=== PATIENT | female | born 1935 | race Caucasian/White ===

== ENCOUNTER 2017-10-18 12:45 | Inpatient (IN) | payer MEDICARE, MEDICAID ==
[~2017-10-18] VITALS: Ht 144.8 cm; Wt 54.0 kg
--- NOTE | ~2017-10-18 | PROC ---
[address] [address] PROCEDURE REPORT Name: MINA TOMLINSON Room: [address] IN .R.#: [id number] Admission: 10/18/17 Attend Phys: Ulisses Oh MD Discharge: 10/20/17 Date of : 35 Report #: [id number] THIS REPORT FOR: //name// For GI report, please see the Provation report in Perceptive 7 content. By: 0646Medical Records Staff KAYLEE /JOHNNIE
[~2017-10-18 12:45] MED LIST: ANASTROZOLE1 MG PO; CALCIUM 500 +1 EAC5 PO; PROTONIX40 M1 PO; VITAMIN D1000 UNI1 PO; VITAMIN D2000 UNIT PO
[2017-10-18 12:58] VITALS: BP 123/84
[2017-10-18] MEDS ORDERED: CELEXA20 MG PO (13:02)
[2017-10-18 13:43] LABS: ABSOLUTE LYMPHOCYTES 1.3 thou/uL (0.8-5.3); ABSOLUTE MONOCYTES 0.4 thou/uL (0.0-1.2); ABSOLUTE NEUTROPHILS 6.3 thou/uL (1.6-8.1); BASOPHILS 0.4 %; EOSINOPHILS 0.1 %; HEMATOCRIT 39.7 % (37.0-47.0); HEMOGLOBIN 13.4 gm/dL (12.0-15.0); MCH 31.5 pg (26.0-34.0); MCHC 33.8 g/dL (28.0-37.0); MCV 93.1 fL (80.0-100.0); MONOCYTES 4.6 %; MPV 8.9 fl. (7.2-11.1); NUCLEATED RBCS 0 /100WBC; PLATELET COUNT* 210 thou/uL (150-400); POLYS 78.9 %; RBC 4.26 mil/uL (4.20-5.00); RDW-CV 13.7 % (10.5-14.5); WBC 7.9 thou/uL (4.0-11.0)
[2017-10-18 13:51] LABS: ANION GAP 9 mmol/L (7-16); BUN 14 mg/dL (7-18); CALCIUM 8.7 mg/dL (8.5-10.1); CHLORIDE 106 mmol/L (98-107); CO2 26 mmol/L (21-32); CREATININE 0.5 mg/dL (0.6-1.3); GLUCOSE 137 mg/dL (70-99); POTASSIUM 3.9 mmol/L (3.5-5.1); SODIUM 141 mmol/L (136-145)
[2017-10-18 13:59] LABS: ALBUMIN 3.7 g/dL (3.4-5.0); ALKALINE PHOSPHATASE 86 U/L (46-116); LIPASE 118 U/L (73-393); SGOT 18 U/L (15-37); SGPT 17 U/L (30-65); TOTAL BILIRUBIN 0.6 mg/dL (<0.1-1.0); TOTAL PROTEIN 7.4 g/dL (6.4-8.2); TROPONIN-I LEVEL <0.06 ng/mL (<0.06)
[2017-10-18] MEDS ORDERED: ZOFRAN ODT4 MG PO (14:43)
[2017-10-18 14:54] LABS: URINE BILIRUBIN NEGATIVE (Negative); URINE BLOOD NEGATIVE (Negative); URINE CLARITY CLOUDY; URINE COLOR YELLOW; URINE GLUCOSE-RANDOM NEGATIVE (Negative); URINE KETONES NEGATIVE (Negative); URINE LEUKOCYTES-REFLEX TRACE (Negative); URINE PROTEIN NEGATIVE (Negative); URINE SPECIFIC GRAVITY 1.015 (1.005-1.030); URINE UROBILINOGEN 0.2 E.U./dl (0.2-1.0)
[2017-10-18 15:09] LABS: INFLUENZA A ANTIGEN None Detected (None Detect); INFLUENZA B ANTIGEN None Detected (None Detect)
[2017-10-18 15:11] LABS: URINE NITRITE-REFLEX POSITIVE (Negative)
[2017-10-18 15:12] LABS: MUCUS 0-3 Light strn/LPF (None Seen); SQUAMOUS >10 Many /LPF (0-3)
[2017-10-18 15:13] LABS: BACTERIA-REFLEX >30 Many /HPF (None Seen); URINE WBC-REFLEX 6-15 Few /HPF (0-5)
[2017-10-18 15:14] LABS: CRYSTALS None Seen /LPF (None Seen); HYALINE CASTS 0-3 Few /LPF (None Seen); URINE RBC None Seen /HPF (0-2)
--- NOTE | 2017-10-18 16:05 | EKG ---
[place] [address] ELECTROCARDIOGRAM REPORT Name: TOMLINSONMINA D Room: [place] [address] ADM IN .R.#: [id number] Admission: 10/18/17 Attend Phys: Ulisses Oh MD Discharge: Date of : 35 Report #: [id number] THIS REPORT FOR: //name// [facility] ED Test Date: 2017-10-18 Test Time: 13:30:28 Pat Name: MINA TOMLINSON Department: Room: [facility] Gender: Biology Intern: Wisam TROTTER : 1935 Requested By: Lazara Alvarez Order Number: [id number] MD: Andriy Armstrong Measurements Intervals [place] Rate: 87 P: 30 LA: 163 QRS: -34 QRSD: 80 T: 11 QT: 388 QTc: 467 Interpretive Statements Sinus rhythm Inferior infarct, old possible No previous ECG available for comparison Electronically Signed On 10-18-2017 16:04:57 MANAGER OF NETWORK by Andriy Armstrong [email or web address] <ELECTRONICALLY SIGNED> By: Andriy Armstrong MD, [facility] 10/18/17 1604 1330 29 Andriy Armstrong MD, FAC /EPI
[2017-10-18 18:29] VITALS: BP 130/75
[2017-10-18 19:26] VITALS: BP 112/69
[2017-10-18 19:45] VITALS: BP 153/91
[2017-10-19 04:47] LABS: ABSOLUTE LYMPHOCYTES 2.5 thou/uL (0.8-5.3); ABSOLUTE MONOCYTES 0.7 thou/uL (0.0-1.2); ABSOLUTE NEUTROPHILS 4.7 thou/uL (1.6-8.1); BASOPHILS 0.5 %; EOSINOPHILS 0.6 %; HEMATOCRIT 36.3 % (37.0-47.0); HEMOGLOBIN 12.7 gm/dL (12.0-15.0); LYMPHOCYTES 31.2 %; MCH 32.1 pg (26.0-34.0); MCV 91.9 fL (80.0-100.0); MONOCYTES 8.6 %; MPV 9.4 fl. (7.2-11.1); NUCLEATED RBCS 0 /100WBC; PLATELET COUNT* 192 thou/uL (150-400); POLYS 59.1 %; RBC 3.95 mil/uL (4.20-5.00); RDW-CV 13.8 % (10.5-14.5)
[2017-10-19 04:53] LABS: CREATININE 0.6 mg/dL (0.6-1.3); MAGNESIUM 1.9 mg/dL (1.8-2.4); POTASSIUM 3.8 mmol/L (3.5-5.1)
[2017-10-19 07:55] VITALS: BP 125/67
[2017-10-19 09:00] VITALS: BP 125/67
[2017-10-20 07:17] VITALS: BP 114/69
[2017-10-20 07:40] VITALS: BP 114/69
[2017-10-20] MEDS ORDERED: CEFUROXIME500 MG PO (11:25)
[2017-10-20] MEDS ORDERED: PROTONIX40 M1 PO (11:26)
[2017-10-20] MEDS ORDERED: CARAFATE 1 GM TA1 G1 PO (11:28)
[2017-10-20 11:31] VITALS: BP 114/69
--- NOTE | 2017-10-22 09:34 | S ---
[place] [address] SURGICAL PATH RPT PROCEDURE Name: RUBI PRIETO Room: [address] IN [facility].#: [id number] Admission: 10/18/17 Date of : 35 Discharge: 10/20/17 Report #: [id number] Path Case #: [id number] PATHOLOGY REPORT COLLECTION DATE: 10/19/2017 RECEIVED DATE: 10/20/2017 SUBMITTING PHYS: Dr. Benita Gomes OTHER PHYS: Dr. Ulisses Oh SPECIMEN(S) RECEIVED: A.Distal esophagus * * * * * * * * * * * * FINAL DIAGNOSIS: Distal esophagus: - Benign gastric/columnar mucosa with moderate non-specific chronic and active inflammation and hyperplastic features, negative for Helicobacter pylori organisms, granulomas, goblet cells/diagnostic Holland's metaplasia, and dysplasia. (ZACHARIAH:mgr; 10/21/2017) COMMENT: Special Stain: Helicobacter pylori (A) PATHOLOGIST: Woody Hart M.D. REPORT ELECTRONICALLY SIGNED BY: Woody Hart M.D. DATE/TIME: 10/22/2017 09:34 * * * * * * * * * * * * GROSS PATHOLOGY: Received in formalin labeled "Rubi Prieto, distal esophagus esophagitis," is a segment of gramajo soft tissue measuring 0.5 cm in maximum dimension. The specimen is submitted entirely in cassette A1. (CAA; 10/20/2017) CLINICAL HISTORY: None provided INITIAL CPT CODE(S): A; 70103, 18106 Professional services performed by [facility] at [facility], [address] [place] [id number]. Technical services performed by [facility] at [address] [place] [address], [facility] [address] [address]. [place] [address] SURGICAL PATH RPT PROCEDURE Name: RUBI PRIETO Room: [facility] IN ..#: [id number] Admission: 10/18/17 Date of : 35 Discharge: 10/20/17 Report #: [id number] Path Case #: [id number] [facility] [address] [address] PHONE: [phone] DIRECTOR: Buzz Conte M.D. * * * END OF REPORT * * *
--- NOTE | 2017-11-11 14:50 | CON ---
[facility] [address] [place] [address] CONSULTATION Name: MINA TOMLINSON Room: [address] IN M.R.#: [id number] Admission: 10/18/17 Attend Phys: Ulisses Oh MD Discharge: 10/20/17 Date of : 35 Report #: [id number] THIS REPORT FOR: //name// CC: Ulisses Oh [facility] physician/PCP DICTATED BY: Melissa Kaye [facility] DATE OF SERVICE: 10/19/2017 Son does not remember who her PCP is. Please note at the time of this dictation, the patient was seen and physically examined by myself. REASON FOR CONSULTATION: Hematemesis. HISTORY OF PRESENT ILLNESS: This is a pleasant 82-year-old female who was brought to the Emergency Room by her son after having episodes of some nausea and vomiting, in which it was noted that she had some bright red blood in the stool after an episode along with some epigastric discomfort, which she had been having for the past 24 hours. Son states that because her stomach was upset that she did force herself to vomit with sticking her finger down her throat. The patient has been out of her medications, which has been her pantoprazole for several weeks per the son when all of these episodes started. He does not recall whether or not she has had EGD or colonoscopies done, all of this has all been done at [facility] several years ago. ALLERGIES: No known drug allergies. MEDICATIONS: From home include Celexa and anastrozole. PAST MEDICAL HISTORY: Breast cancer. PAST SURGICAL HISTORY: Right mastectomy. FAMILY HISTORY: Noncontributory. SOCIAL HISTORY: Denies any alcohol, tobacco or illegal drug use and she is currently living with her son. The patient does speak very little Lithuanian and he is her travel pta during this exam. REVIEW OF SYSTEMS: Twelve-point review of systems is essentially negative except what is mentioned in the HPI. PHYSICAL EXAMINATION: [place] [address] CONSULTATION Name: MINA TOMLINSON Room: [address]#: [id number] Admission: 10/18/17 Attend Phys: Ulisses Oh MD Discharge: 10/20/17 Date of : 35 Report #: [id number] VITAL SIGNS: Temperature 36.5, pulse 84, respirations 16, blood pressure 125/67. HEART: Regular rate and rhythm. LUNGS: Essentially clear. ABDOMEN: Soft with some diffuse tenderness in the upper quadrants, otherwise essentially negative. LABORATORY DATA: Hemoglobin on admission was 13.4, she is 12.7 now; hematocrit 36.3; white count is 8; platelets 192. Sodium 140, potassium 3.6, chloride 108, CO2 26, BUN is 13, creatinine 0.6, GFR is 96 and glucose is 96. She had positive nitrites in her urine and her LFTs were completely normal. CT showed a moderate amount of stool and some mild atelectasis and small hiatal hernia. IMPRESSION: 1. Hematemesis. 2. Epigastric pain. 3. History of breast cancer in 2016. 4. Urinary tract infection. PLAN: 1. EGD today with Dr. Gomes. 2. Further recommendations to be made after the procedure has been performed. Thank you for allowing us to participate in this patient's care. Please do not hesitate to call with any questions in regard to this consult. I have personally seen and examined the patient and reviewed labs and imaging studies. The patient with recent history of hematemesis and epigastric pain and burning. We will proceed with EGD and make further recommendation once the EGD is completed. The patient is agreeable with plan. <ELECTRONICALLY SIGNED> By: Benita Gomes MD 11/11/17 1450 1136 1934Benita Gomes MD /nt
--- NOTE | 2017-11-11 14:50 | CON ---
[address] [address] CONSULTATION Name: MINA TOMLINSON Room: [address] IN M.R.#: [id number] Admission: 10/18/17 Attend Phys: Ulisses Oh MD Discharge: 10/20/17 Date of : 35 Report #: [id number] THIS REPORT FOR: //name// CC: Ulisses Oh [facility] physician/PCP DATE OF SERVICE: 10/19/2017 ADDENDUM I have personally seen and examined the patient and reviewed labs and imaging studies. The patient with recent history of hematemesis and epigastric pain and burning. We will proceed with EGD and make further recommendation once the EGD is completed. The patient is agreeable with plan. <ELECTRONICALLY SIGNED> By: Benita Gomes MD 11/11/17 1450 1546 0246Benita Gomes MD /nt
== END 2017-10-20 14:09 | disposition home or self-care (01) | DRG 380 ==
LOC: M.ERS 12:45 → M.3W 15:53 → M.TBA-ER 15:53 → M.3W 18:33
PROVIDERS: Physician Assistant; ADMIT Internal Medicine
PROC: 0DB38ZX Excision of Lower Esophagus, Via Natural or Artificial Opening Endoscopic, Diagnostic (ICD-10-PCS; principal; 2017-10-18)
DX: K22.11 Ulcer of esophagus with bleeding (principal); G93.40 Encephalopathy, unspecified; N39.0 Urinary tract infection, site not specified; E86.0 Dehydration; R11.2 Nausea with vomiting, unspecified; K21.0 Gastro-esophageal reflux disease with esophagitis; K44.9 Diaphragmatic hernia without obstruction or gangrene; B96.20 Unspecified Escherichia coli [E. coli] as the cause of diseases classified elsewhere; Z85.3 Personal history of malignant neoplasm of breast; Z79.899 Other long term (current) drug therapy; Z90.11 Acquired absence of right breast and nipple; Z23 Encounter for immunization

== ENCOUNTER 2017-12-12 04:42 | Inpatient (IN) | payer MEDICARE, MEDICAID ==
[~2017-12-12] VITALS: Ht 149.9 cm; Wt 57.2 kg
--- NOTE | ~2017-12-12 | PROC ---
[facility] [address] [place] [address] PROCEDURE REPORT Name: MINA TOMLINSON Room: [address] IN M.R.#: [id number] Admission: 12/12/17 Attend Phys: Eber Garrido, Discharge: 12/14/17 Date of : 35 Report #: [id number] THIS REPORT FOR: //name// For GI report, please see the Provation report in Perceptive 7 content. By: 0652Medical Records Staff KAYLEE /JOHNNIE
[~2017-12-12 04:42] MED LIST changes: +CARAFATE 1 GM TA1 G1 PO; +CEFUROXIME500 MG PO; +CELEXA20 MG PO; +ZOFRAN ODT4 MG PO
[2017-12-12 04:53] VITALS: BP 151/85
[2017-12-12 05:17] LABS: ABSOLUTE BASOPHILS 0.1 thou/uL (0.0-0.2); ABSOLUTE EOSINOPHILS 0.1 thou/uL (0.0-0.7); ABSOLUTE LYMPHOCYTES 2.5 thou/uL (0.8-5.3); ABSOLUTE MONOCYTES 0.7 thou/uL (0.0-1.2); ABSOLUTE NEUTROPHILS 4.4 thou/uL (1.6-8.1); BASOPHILS 0.7 %; EOSINOPHILS 1.9 %; HEMATOCRIT 41.4 % (37.0-47.0); HEMOGLOBIN 13.8 gm/dL (12.0-15.0); LYMPHOCYTES 31.9 %; MCH 31.2 pg (26.0-34.0); MCHC 33.3 g/dL (28.0-37.0); MCV 93.8 fL (80.0-100.0); MONOCYTES 8.7 %; MPV 8.7 fl. (7.2-11.1); NUCLEATED RBCS 0 /100WBC; PLATELET COUNT* 186 thou/uL (150-400); POLYS 56.8 %; RBC 4.41 mil/uL (4.20-5.00); RDW-CV 13.9 % (10.5-14.5); WBC 7.8 thou/uL (4.0-11.0)
[2017-12-12 05:28] LABS: PROTIME 10.2 Seconds (9.20-11.50)
[2017-12-12 05:29] LABS: ANION GAP 9 mmol/L (7-16); BUN 20 mg/dL (7-18); CALCIUM 10.2 mg/dL (8.5-10.1); CHLORIDE 104 mmol/L (98-107); CO2 27 mmol/L (21-32); CREATININE 0.7 mg/dL (0.6-1.3); GLUCOSE 127 mg/dL (70-99); POTASSIUM 3.6 mmol/L (3.5-5.1); SODIUM 140 mmol/L (136-145)
[2017-12-12 05:40] LABS: ALBUMIN 3.9 g/dL (3.4-5.0); ALKALINE PHOSPHATASE 82 U/L (46-116); LIPASE 159 U/L (73-393); NT-PRO BRAIN NAT PEPTIDE 121 pg/mL (<300); SGOT 20 U/L (15-37); SGPT 19 U/L (30-65); TOTAL BILIRUBIN 0.7 mg/dL (<0.1-1.0); TOTAL PROTEIN 7.7 g/dL (6.4-8.2); TROPONIN-I LEVEL <0.06 ng/mL (<0.06)
[2017-12-12 06:21] LABS: URINE BILIRUBIN NEGATIVE (Negative); URINE BLOOD NEGATIVE (Negative); URINE CLARITY CLEAR; URINE COLOR YELLOW; URINE GLUCOSE-RANDOM NEGATIVE (Negative); URINE KETONES NEGATIVE (Negative); URINE LEUKOCYTES-REFLEX TRACE (Negative); URINE NITRITE-REFLEX NEGATIVE (Negative); URINE PROTEIN NEGATIVE (Negative); URINE SPECIFIC GRAVITY 1.015 (1.005-1.030); URINE UROBILINOGEN 0.2 E.U./dl (0.2-1.0)
[2017-12-12 06:32] LABS: BACTERIA-REFLEX >30 Many /HPF (None Seen); CASTS None Seen /LPF (None Seen); CRYSTALS None Seen /LPF (None Seen); SQUAMOUS 0-3 Few /LPF (0-3); URINE RBC None Seen /HPF (0-2); URINE WBC-REFLEX 0-5 Rare /HPF (0-5)
[2017-12-12 09:37] VITALS: BP 109/68
--- NOTE | 2017-12-12 13:01 | EKG ---
[place] [address] ELECTROCARDIOGRAM REPORT Name: MINA TOMLINSON Room: [address] IN .R.#: [id number] Admission: 12/12/17 Attend Phys: Eber Garrido, Discharge: Date of : 35 Report #: [id number] THIS REPORT FOR: //name// [facility] ED Test Date: 2017-12-12 Test Time: 04:59:38 Pat Name: MINA TOMLINSON Department: Room: [facility] Gender: F Attorney: DOV Joel : 1935 Requested By: Yumiko Bob Order Number: [id number] MD: Carlton Rowley Measurements Intervals [place] Rate: 93 P: 56 CO: 174 QRS: -25 QRSD: 81 T: -4 QT: 369 QTc: 459 Interpretive Statements Sinus rhythm Probable left atrial enlargement Borderline left axis deviation Borderline T wave abnormalities Baseline wander in lead(s) V2 Compared to ECG 10/18/2017 13:30:28 T-wave abnormality now present Myocardial infarct finding no longer present Electronically Signed On 12-12-2017 13:01:15 CDT by Carlton Rowley [email or web address] <ELECTRONICALLY SIGNED> By: Carlton Rowley MD, FACC 12/12/17 1301 0459 0459 Carlton Rowley MD, [facility] /EPI
[2017-12-12 15:25] VITALS: BP 98/55
[2017-12-12 21:00] VITALS: BP 92/54
[2017-12-13 04:14] LABS: HEMATOCRIT 35.9 % (37.0-47.0); MCH 31.4 pg (26.0-34.0); MCHC 33.4 g/dL (28.0-37.0); MCV 94.1 fL (80.0-100.0); MPV 9.1 fl. (7.2-11.1); RBC 3.81 mil/uL (4.20-5.00); WBC 5.9 thou/uL (4.0-11.0)
[2017-12-13 04:28] LABS: CALCIUM 8.3 mg/dL (8.5-10.1); CREATININE 0.9 mg/dL (0.6-1.3); POTASSIUM 4.3 mmol/L (3.5-5.1)
[2017-12-13 08:00] VITALS: BP 107/59
[2017-12-13 16:00] VITALS: BP 105/57
[2017-12-14 00:08] VITALS: BP 102/56
[2017-12-14 05:26] LABS: ABSOLUTE BASOPHILS 0.1 thou/uL (0.0-0.2); ABSOLUTE EOSINOPHILS 0.2 thou/uL (0.0-0.7); ABSOLUTE LYMPHOCYTES 2.7 thou/uL (0.8-5.3); ABSOLUTE MONOCYTES 0.6 thou/uL (0.0-1.2); ABSOLUTE NEUTROPHILS 2.8 thou/uL (1.6-8.1); BASOPHILS 0.9 %; EOSINOPHILS 3.6 %; HEMATOCRIT 37.9 % (37.0-47.0); HEMOGLOBIN 12.8 gm/dL (12.0-15.0); LYMPHOCYTES 42.2 %; MCH 31.6 pg (26.0-34.0); MCHC 33.7 g/dL (28.0-37.0); MCV 93.6 fL (80.0-100.0); MONOCYTES 9.5 %; MPV 9.1 fl. (7.2-11.1); NUCLEATED RBCS 0 /100WBC; PLATELET COUNT* 175 thou/uL (150-400); POLYS 43.8 %; RBC 4.05 mil/uL (4.20-5.00); WBC 6.5 thou/uL (4.0-11.0)
[2017-12-14 07:45] VITALS: BP 105/57
[2017-12-14 08:30] VITALS: BP 105/57
[2017-12-14 11:27] VITALS: BP 105/57
[2017-12-14] MEDS ORDERED: PRILOSEC 20 MG20 MG PO (15:46)
[2017-12-14 15:47] VITALS: BP 105/57
[2017-12-14] MEDS ORDERED: LEVAQUIN 500 M500 M3 PO (15:57)
[2017-12-14] MEDS ORDERED: PROTONIX40 M1 PO (15:57)
[2017-12-14] MEDS ORDERED: LEVAQUIN 500 M500 M2 PO (17:02)
[2017-12-14 20:05] VITALS: BP 105/57
--- NOTE | 2017-12-15 11:16 | S ---
[address] [address] SURGICAL PATH RPT PROCEDURE Name: RUBI PRIETO Room: [address] IN [facility].#: [id number] Admission: 12/12/17 Date of : 35 Discharge: 12/14/17 Report #: [id number] Path Case #: [id number] PATHOLOGY REPORT COLLECTION DATE: 12/14/2017 RECEIVED DATE: 12/14/2017 SUBMITTING PHYS: Dr. Benita Gomes OTHER PHYS: Dr. Eber Garrido SPECIMEN(S) RECEIVED: A.Distal esophageal ulcer biopsy * * * * * * * * * * * * FINAL DIAGNOSIS: Distal esophageal ulcer biopsy: - Severe chronic and active esophagitis with ulceration compatible with ulcerative reflux, negative for granulomas, viral inclusions and dysplasia. (ZACHARIAH:pit; 12/15/2017) PATHOLOGIST: Woody Hart M.D. REPORT ELECTRONICALLY SIGNED BY: Woody Hart M.D. DATE/TIME: 12/15/2017 11:16 * * * * * * * * * * * * GROSS PATHOLOGY: Received in formalin labeled "Rubi Pireto, distal esophageal ulcer biopsy," are 2 segments of gramajo soft tissue measuring 0.5 x 0.2 x 0.2 cm in aggregate dimensions and ranging from 0.2 to 0.3 cm in maximum dimension. The specimen is submitted entirely in cassette A1. (TSD; 12/14/2017) CLINICAL HISTORY: None provided INITIAL CPT CODE(S): A; 71308 Professional services performed by [facility] at [facility] [address] [place] [address] Technical services performed by [facility] at [address] [place] [address], [facility] [address] [address]. [address] [place] [address] SURGICAL PATH RPT PROCEDURE Name: RUBI PRIETO Room: [address]#: [id number] Admission: 12/12/17 Date of : 35 Discharge: 12/14/17 Report #: [id number] Path Case #: [id number] [facility] [address] [address] PHONE: [phone] DIRECTOR: Buzz Conte M.D. * * * END OF REPORT * * *
--- NOTE | 2017-12-27 15:01 | CON ---
[facility] [address] [place] [address] CONSULTATION Name: MINA TOMLINSON Room: [address] IN M.R.#: [id number] Admission: 12/12/17 Attend Phys: Eber Garrido, Discharge: 12/14/17 Date of : 35 Report #: [id number] THIS REPORT FOR: //name// CC: [facility] physician/PCP Eber Garrido DICTATED BY: Melissa AGUILAP DATE OF SERVICE: 12/13/2017 The patient does not have a PCP. Please note at the time of this dictation, the patient was seen and physically examined by myself. HISTORY OF PRESENT ILLNESS: This is an 82-year-old female who is Venezuelan speaking and does not understand any Panamanian. At the time of this dictation, the translation phone was not working and her son was unavailable to help with translation. This was obtained to the best of my ability with the lack of being able to speak Venezuelan to her. Most of this has been obtained from the chart. The patient was complaining for several days prior to admission kind of a burning sensation in her abdomen, which was in the epigastric area radiating into her throat with some nausea, no vomiting was noted and she was having no issues with her stools. Her appetite had been good. Back in 10/2017, the patient was having hematemesis and underwent an EGD that showed grade D esophagitis as well as an esophageal ulcer. She was placed on Protonix b.i.d. and Carafate b.i.d., unclear if she has been taking those medications as directed for the past 2 months and was recommended a repeat EGD in 2 months and to do a colon as well since she has not had a colon in many years. ALLERGIES: No known drug allergies. MEDICATIONS: From home include pantoprazole, Carafate, Celexa. PAST MEDICAL HISTORY: Recent GI bleed, breast cancer on the right side in 2016. PAST SURGICAL HISTORY: Right mastectomy. FAMILY HISTORY: Negative. SOCIAL HISTORY: The patient lives with her son. Denies any alcohol, tobacco or illegal drug use. REVIEW OF SYSTEMS: Twelve-point review of systems is essentially negative except what [place] [address] CONSULTATION Name: MINA TOMLINSON Room: [address]#: [id number] Admission: 12/12/17 Attend Phys: Eber Garrido, Discharge: 12/14/17 Date of : 35 Report #: [id number] PHYSICAL EXAMINATION: VITAL SIGNS: Temperature 36.7, pulse 63, respirations 15, blood pressure 107/59. HEART: Regular rate and rhythm. LUNGS: Clear, slightly diminished. ABDOMEN: Soft, positive bowel sounds in all 4 quadrants with some slight epigastric tenderness noted to palpation. LABORATORY DATA: Hemoglobin is 12, hematocrit 35.9, white count is 5.9, platelets 181. Sodium 142, potassium 4.3, chloride 106, CO2 of 26, BUN is 16, creatinine 0.9, GFR is 60 with glucose to be in 97. CT of the abdomen and pelvis showed small hiatal hernia and wall thickening of the distal esophagus, atelectasis in the right lung base, small hiatal hernia. Chest x-ray showed some mild right basilar atelectasis. IMPRESSION: 1. Abdominal pain, epigastric with burning. 2. Throat pain. 3. Some pneumonia. 4. History of grade D esophagitis from 10/2017. 5. History of breast cancer. 6. No colonoscopy in many years. PLAN: 1. EGD tomorrow with Dr. Gomes. 2. Further recommendations to be made after the procedure. The patient will need outpatient colon. Thank you for allowing us to participate in this patient's care. Please do not hesitate to call with any questions in regard to this consult. ADDENDUM This is an 82-year-old female who is well known to us as she has had history of grade D esophagitis. She presents with epigastric pain and burning in her throat. She also had some evidence of pneumonia for which she is being treated. We will go ahead and schedule her for her upper endoscopy tomorrow as she was supposed to get this around this time anyways. We will make further recommendation after her endoscopy is completed. <ELECTRONICALLY SIGNED> By: Benita Gomes MD 12/27/17 1501 1151 Benita Gomes MD /nt
== END 2017-12-14 20:06 | disposition home or self-care (01) | DRG 380 ==
LOC: M.ERS 04:42 → M.3W 08:22 → M.TBA-ER 08:22 → M.3W 09:33
PROVIDERS: Emergency Medicine; Emergency Medicine Emergency Medical Services; ADMIT Family Medicine
PROC: 0DB58ZX Excision of Esophagus, Via Natural or Artificial Opening Endoscopic, Diagnostic (ICD-10-PCS; principal; 2017-12-14)
DX: K22.10 Ulcer of esophagus without bleeding (principal); J15.6 Pneumonia due to other Gram-negative bacteria; N39.0 Urinary tract infection, site not specified; K44.9 Diaphragmatic hernia without obstruction or gangrene; D50.9 Iron deficiency anemia, unspecified; Z85.3 Personal history of malignant neoplasm of breast; Z79.899 Other long term (current) drug therapy; Z90.11 Acquired absence of right breast and nipple

== ENCOUNTER 2018-04-07 14:32 | Emergency (ER) | payer MEDICARE, MEDICAID ==
[~2018-04-07] VITALS: Ht 157.5 cm; Wt 65.8 kg
[~2018-04-07 14:32] MED LIST changes: +LEVAQUIN 500 M500 M2 PO; +LEVAQUIN 500 M500 M3 PO; +PRILOSEC 20 MG20 MG PO
[2018-04-07 14:47] VITALS: BP 121/69
[2018-04-07] MEDS ORDERED: KEFLEX500 M1 PO (15:06)
[2018-04-07] MEDS ORDERED: CLARITIN10 MG PO (15:06)
== END 2018-04-07 15:19 | disposition home or self-care (01) ==
LOC: M.ERS 14:32
DX: L03.211 Cellulitis of face (principal)

== ENCOUNTER 2018-09-01 16:41 | Emergency (ER) | payer MEDICARE, MEDICAID ==
[~2018-09-01] VITALS: Ht 157.5 cm; Wt 61.2 kg
[~2018-09-01 16:41] MED LIST changes: +CLARITIN10 MG PO; +KEFLEX500 M1 PO
[2018-09-01] MEDS ORDERED: PROTONIX40 M1 PO (17:03)
[2018-09-01] MEDS ORDERED: ARIMIDEX PO (17:04)
[2018-09-01] MEDS ORDERED: ARICEPT 5 MG TAB5 MG PO (17:04)
[2018-09-01 17:50] LABS: ABSOLUTE EOSINOPHILS 0.1 thou/uL (0.0-0.7); ABSOLUTE MONOCYTES 0.7 thou/uL (0.0-1.2); ABSOLUTE NEUTROPHILS 4.7 thou/uL (1.6-8.1); BASOPHILS 0.7 %; EOSINOPHILS 1.1 %; HEMATOCRIT 38.9 % (37.0-47.0); LYMPHOCYTES 15.7 %; MCH 30.2 pg (26.0-34.0); MCHC 33.3 g/dL (28.0-37.0); MCV 90.6 fL (80.0-100.0); MONOCYTES 10.4 %; MPV 9.2 fl. (7.2-11.1); NUCLEATED RBCS 0 /100WBC; PLATELET COUNT* 194 thou/uL (150-400); POLYS 72.1 %; RDW-CV 14.7 % (10.5-14.5); WBC 6.5 thou/uL (4.0-11.0)
[2018-09-01 18:06] LABS: ANION GAP 10 mmol/L (7-16); BUN 14 mg/dL (7-18); CALCIUM 8.7 mg/dL (8.5-10.1); CHLORIDE 105 mmol/L (98-107); CO2 25 mmol/L (21-32); CREATININE 0.7 mg/dL (0.6-1.3); GLUCOSE 108 mg/dL (70-99); POTASSIUM 3.8 mmol/L (3.5-5.1); SODIUM 140 mmol/L (136-145)
[2018-09-01 18:20] LABS: ALBUMIN 3.6 g/dL (3.4-5.0); ALKALINE PHOSPHATASE 103 U/L (46-116); LIPASE 115 U/L (73-393); NT-PRO BRAIN NAT PEPTIDE 143 pg/mL (<300); SGOT 20 U/L (15-37); SGPT 20 U/L (30-65); TOTAL BILIRUBIN 0.5 mg/dL (<0.1-1.0); TOTAL PROTEIN 7.5 g/dL (6.4-8.2); TROPONIN-I LEVEL <0.06 ng/mL (<0.06)
[2018-09-01 18:26] LABS: INFLUENZA A ANTIGEN None Detected (None Detect); INFLUENZA B ANTIGEN None Detected (None Detect)
[2018-09-01] MEDS ORDERED: ZPAK PO (18:54)
[2018-09-01] MEDS ORDERED: PREDNISONE 20 M20 M1 PO (18:54)
[2018-09-01] MEDS ORDERED: IBUPROFEN 600600 M1 PO (19:20)
[2018-09-01 19:25] VITALS: BP 130/67
--- NOTE | 2018-09-02 14:02 | EKG ---
[place] [address] ELECTROCARDIOGRAM REPORT Name: MINA TOMLINSON Room: [facility]#: [id number] Admission: 09/01/18 Attend Phys: Discharge: 09/01/18 Date of : 35 Report #: [id number] THIS REPORT FOR: //name// [facility] ED Test Date: 2018-09-01 Test Time: 17:51:45 Pat Name: MINA TOMLINSON Department: Room: Gender: F Interactive Media Marketing Strategist: Wisam DAWSON : 1935 Requested By: Fausto French Order Number: [id number] MD: Braydon Robles Measurements Intervals [place] Rate: 80 P: 42 OR: 174 QRS: -15 QRSD: 81 T: 9 QT: 379 QTc: 438 Interpretive Statements Sinus rhythm Low voltage Nonspecific T-wave flattening Compared to ECG 12/12/2017 04:59:38 T-wave abnormality no longer present Electronically Signed On 09-02-2018 14:02:31 TRAIN OPERATOR by Braydon Robles [email or web address] <ELECTRONICALLY SIGNED> By: Braydon Robles MD, [facility] 09/02/18 1402 1751 175 Braydon Robles MD, [facility] /EPI
== END 2018-09-01 19:27 | disposition home or self-care (01) ==
LOC: M.ERS 16:41
PROVIDERS: Family Medicine
DX: J40 Bronchitis, not specified as acute or chronic (principal); Z85.3 Personal history of malignant neoplasm of breast; Z90.12 Acquired absence of left breast and nipple